=== PATIENT | female | born 1940 | race American Indian/Alaskan Native ===

== ENCOUNTER 2021-02-17 15:04 | Inpatient (IN) | payer MEDICARE, MEDICAID ==
[~2021-02-17] VITALS: Ht 154.9 cm; Wt 68.5 kg
[~2021-02-17 15:04] MED LIST: ASPI-1497 MT; CALC667C MT; CARV25TA47 MT; LORA2ORA5 PO; MINO2.5T19 MT; NATE60TA PO; NEPVIT MT; PATI8.4P PO; PROT40 MT; SERT20OR6 PO; SITA25TA3 MT; TEMA15CA MT
[2021-02-17 17:28] LABS: BASOPHILS % 0.1 % (0.0-2.0); HEMATOCRIT. 26.7 % (36.0-48.0); LYMPHOCYTES % 7.6 % (20.0-50.0); MEAN CORPUSCULAR HEMOGLOBIN 32.1 pg (28.0-32.0); MEAN PLATELET VOLUME 8.4 fl (7.4-10.4); MONOCYTES % 5.8 % (2.0-8.0); NEUTROPHILS % 86.5 % (40.0-76.0); PLATELET 133 x1000/uL (130-400); RED BLOOD CELL COUNT 2.81 mill/uL (4.2-5.4); RED CELL DISTRIBUTION WIDTH 15.1 % (11.6-14.6)
[2021-02-17 17:34] LABS: CHLORIDE 96 mEq/L (98-107)
[2021-02-17] MEDS ORDERED: SODIUM CHLORIDE 0.9% 250 ML IV ONE (19:30)
[2021-02-18] MEDS ORDERED: MORPHINE SULFATE 2 MG/ML CPJ (NOT FOR IM USE) IV PRN (07:45)
[2021-02-18] MEDS ORDERED: NALOXONE HCL 0.4MG/ML VIAL IV PRN ×2 (07:45→12:30)
[2021-02-18] MEDS ORDERED: ACETAMINOPHEN 325MG TABLET PO PRN (08:30)
[2021-02-18] MEDS ORDERED: ONDANSETRON HCL 4MG/2ML INJ IV PRN (08:30)
[2021-02-18] MEDS ORDERED: DEXTROSE 50% WATER 50ML SYRINGE IV PRN (08:30)
[2021-02-18 10:26] VITALS: BP 154/55
[2021-02-18 11:09] VITALS: BP 154/55
[2021-02-18] MEDS ORDERED: POLY17PO3 MT (11:58)
[2021-02-18] MEDS ORDERED: NEPVIT MT (11:58)
[2021-02-18] MEDS: BLOOD SUGAR DIAGNOSTIC STRIP TEST SCH ×3 (12:31→21:49)
[2021-02-18] MEDS: INSULIN LISPRO 100 UNITS/ML SUBCUT SCH ×3 (12:37→22:17)
[2021-02-18 15:36] VITALS: BP 114/38
[2021-02-18 16:14] LABS: HEPATITIS B SURFACE ANTIGEN NEGATIVE
[2021-02-18] MEDS: HYDROCODONE/ACETAMINOPHEN 5/325MG TABLET PO PRN ×2 (17:21→22:29)
[2021-02-18 20:00] VITALS: BP 130/37
[2021-02-18] MEDS ORDERED: EPOETIN ALFA-EPBX 10,000 UNIT/ML VIAL SUBCUT SCH (21:00)
[2021-02-18] MEDS ORDERED: DOCU-138 PO (21:26)
[2021-02-18] MEDS: DOCUSATE SODIUM 100MG CAPSULE PO SCH (22:16)
[2021-02-18] MEDS: LORAZEPAM 0.5MG TABLET PO PRN (22:25)
[2021-02-19] VITALS: BP 121/33
[2021-02-19] MEDS: HYDROCODONE/ACETAMINOPHEN 5/325MG TABLET PO PRN ×3 (03:12→15:31)
[2021-02-19 04:00] VITALS: BP 148/45
[2021-02-19] MEDS: BLOOD SUGAR DIAGNOSTIC STRIP TEST SCH ×2 (06:29→13:17)
[2021-02-19] MEDS: LORAZEPAM 0.5MG TABLET PO PRN (06:51)
[2021-02-19] MEDS: DOCUSATE SODIUM 100MG CAPSULE PO SCH (09:14)
[2021-02-19] MEDS: INSULIN LISPRO 100 UNITS/ML SUBCUT SCH ×2 (09:16→13:33)
[2021-02-19 14:00] VITALS: BP 143/33
[2021-02-19 15:38] VITALS: BP 127/28
== END 2021-02-19 16:46 | disposition home or self-care (01) | DRG 189 ==
LOC: ER 15:04 → MICUSO 20:13 → EDBEDREQ 20:36 → EDBEDREQTM 20:36 → 7WST 02-18 10:10 → 6WST 02-18 13:23
PROVIDERS: ADMIT Internal Medicine; ATTEND Internal Medicine
PROC: 5A1D70Z Performance of Urinary Filtration, Intermittent, Less than 6 Hours Per Day (ICD-10-PCS; principal; 2021-02-18)
DX: J96.01 Acute respiratory failure with hypoxia (principal); I50.33 Acute on chronic diastolic (congestive) heart failure; N18.6 End stage renal disease; I13.2 Hypertensive heart and chronic kidney disease with heart failure and with stage 5 chronic kidney disease, or end stage renal disease; E87.1 Hypo-osmolality and hyponatremia; E44.1 Mild protein-calorie malnutrition; F41.9 Anxiety disorder, unspecified; D64.9 Anemia, unspecified; E87.8 Other disorders of electrolyte and fluid balance, not elsewhere classified; Z20.822 Contact with and (suspected) exposure to COVID-19; E11.22 Type 2 diabetes mellitus with diabetic chronic kidney disease; Z95.0 Presence of cardiac pacemaker; Z99.2 Dependence on renal dialysis; Z82.49 Family history of ischemic heart disease and other diseases of the circulatory system; Z79.82 Long term (current) use of aspirin; Z79.899 Other long term (current) drug therapy; Z68.28 Body mass index [BMI] 28.0-28.9, adult; J45.909 Unspecified asthma, uncomplicated
CPT/HCPCS: 36415; 71045; 78582; 80053; 82962; 84484; 85025; 85379; 86705; 86709; 86803; 87340; 87426; 93005; 93970; 99285; A9558; J0885; J1815; J2270; J7050; U0003; U0005